=== PATIENT | male | born 1960 | race Caucasian/White ===

== ENCOUNTER 2022-11-16 09:27 | Inpatient (IN) | payer BC, MEDICARE, OTHER ==
[~2022-11-16] VITALS: Ht 195.6 cm; Wt 86.2 kg
[~2022-11-16 09:27] MED LIST: ASPI-1079 PO; ATOR80TA PO; HYDR-4134 PO; PROT40 PO
[2022-11-16 10:24] LABS: BG CARBOXYHEMOGLOBIN 1.1 % (0.5-1.5); BG DEOXYHEMOGLOBIN 4.3 % (0.0-5.0); BG FRACTION INSPIRED OXYGEN 21; BG METHEMOGLOBIN 0.2 % (0.0-1.5); BG OXYGEN SATURATION 95.6 % (92.0-98.5); BG OXYHEMOGLOBIN 94.4 % (94.0-97.0); BG PCO2 29.7 mmHg (35.0-45.0); BG PH 7.423 (7.350-7.450); BG PO2 74.8 mmHg (75.0-100.0); BG SAMPLE SITE RIGHT RADIAL; BG TOTAL HEMOGLOBIN 15.9 g/dL (12.0-18.0); BG VENT MODE ROOM AIR
[2022-11-16 11:55] LABS: BASOPHILS % 0.1 % (0.0-2.0); LYMPHOCYTES % 14.7 % (20.0-50.0); MEAN CORPUSCULAR HEMOGLOBIN 30.7 pg (28.0-32.0); MEAN CORPUSCULAR VOLUME 89.9 fL (80.0-94.0); MEAN PLATELET VOLUME 9.6 fl (7.4-10.4); MONOCYTES % 8.2 % (2.0-8.0); PLATELET 187 x1000/uL (130-400); RED BLOOD CELL COUNT 4.89 mill/uL (4.7-6.1); RED CELL DISTRIBUTION WIDTH 13.9 % (11.6-14.6)
[2022-11-16 12:02] LABS: CHLORIDE 113 mEq/L (98-107)
[2022-11-16 12:05] LABS: PROTHROMBIN TIME 10.8 sec (9.6-11.0)
[2022-11-16] MEDS: DILTIAZEM HCL 120MG CAPSULE ER 24HR PO SCH (14:00)
[2022-11-16 17:33] VITALS: BP 115/83
[2022-11-16] MEDS ORDERED: ZOLPIDEM TARTRATE 5MG TABLET PO PRN (18:30)
[2022-11-16] MEDS ORDERED: MAGNESIUM HYDROXIDE 400MG/5ML 30ML UDC PO PRN (18:30)
[2022-11-16] MEDS ORDERED: ACETAMINOPHEN 325MG TABLET PO PRN ×2 (18:30)
[2022-11-16] MEDS ORDERED: MAGNESIUM/ALUMINUM HYDROXIDE/SIMETHICONE 30ML UDC PO PRN (18:30)
[2022-11-16] MEDS ORDERED: ONDANSETRON HCL 4MG/2ML INJ IV PRN (18:30)
[2022-11-16] MEDS ORDERED: CLONIDINE 0.1MG TABLET PO PRN (18:30)
[2022-11-16] MEDS ORDERED: DIPHENHYDRAMINE 50MG/ML VIAL IV PRN (18:30)
[2022-11-16 20:00] VITALS: BP 116/73
[2022-11-16] MEDS: METOPROLOL TARTRATE 25MG TABLET PO SCH (20:28)
[2022-11-16] MEDS ORDERED: ATORVASTATIN CALCIUM 20MG TABLET PO SCH (21:00)
[2022-11-16] MEDS ORDERED: FAMOTIDINE 20MG TABLET PO SCH (21:00)
[2022-11-16] MEDS ORDERED: ATORVASTATIN CALCIUM 40MG TABLET PO SCH ×2 (21:00)
[2022-11-16] MEDS ORDERED: DILTIAZEM HCL 60MG TABLET PO SCH (22:00)
[2022-11-16] MEDS: SODIUM CHLORIDE 0.9% INJ 3ML FLUSH IVF SCH (22:20)
[2022-11-17] VITALS: BP 107/67
[2022-11-17 04:00] VITALS: BP 104/67
[2022-11-17] MEDS: SODIUM CHLORIDE 0.9% INJ 3ML FLUSH IVF SCH ×2 (05:10→14:00)
[2022-11-17 08:00] VITALS: BP 116/76
[2022-11-17] MEDS: METOPROLOL TARTRATE 25MG TABLET PO SCH (08:47)
[2022-11-17] MEDS: DILTIAZEM HCL 120MG CAPSULE ER 24HR PO SCH (09:00)
[2022-11-17] MEDS ORDERED: ASPIRIN 81MG EC TABLET PO SCH (09:00)
[2022-11-17 12:00] VITALS: BP 116/79
[2022-11-17 14:10] VITALS: BP 116/79
== END 2022-11-17 15:26 | disposition home or self-care (01) | DRG 310 ==
LOC: ER 09:40 → 3WST 12:42 → EDBEDREQSVC 12:51 → EDBEDREQ 12:51
PROVIDERS: ADMIT Internal Medicine; ATTEND Internal Medicine
DX: I47.1 Supraventricular tachycardia (principal); I16.0 Hypertensive urgency; E78.00 Pure hypercholesterolemia, unspecified; R09.02 Hypoxemia; I10 Essential (primary) hypertension; E78.5 Hyperlipidemia, unspecified; R03.1 Nonspecific low blood-pressure reading; Z79.899 Other long term (current) drug therapy; Z82.49 Family history of ischemic heart disease and other diseases of the circulatory system
CPT/HCPCS: 36415; 36600; 71045; 71275; 80053; 82375; 82805; 83605; 83880; 84145; 84439; 84443; 84484; 85025; 85379; 93005; 93306; 93970; 99285